=== PATIENT | male | born 1955 | race Caucasian/White ===

== ENCOUNTER 2017-09-10 20:57 | Emergency (ER) | payer OTHER | END 2017-09-10 21:22 | disposition home or self-care (01) | LOC: E/R 20:57 | DX: S50.811A Abrasion of right forearm, initial encounter (principal); S51.811A Laceration without foreign body of right forearm, initial encounter; W50.4XXA Accidental scratch by another person, initial encounter; Y92.239 Unspecified place in hospital as the place of occurrence of the external cause | CPT/HCPCS: 99282 ==

== ENCOUNTER 2017-12-31 21:37 | Emergency (ER) | payer OTHER ==
[2017-12-31] MEDS: KETOROLAC 30 MG INJ IM (22:41)
== END 2018-01-01 00:30 | disposition home or self-care (01) ==
LOC: FTE 01-01 00:30
DX: M54.5 Low back pain (principal)
CPT/HCPCS: 72100; 96372; 99284-25